=== PATIENT | male | born 1975 | race Two or more races ===

== ENCOUNTER 2020-02-09 10:42 | Emergency (ER) | payer OTHER ==
[2020-02-09] MEDS ORDERED: TETRACAINE 0.5% HCL 0.6ML DROPPER.BOTTLE OD ONE (10:46)
[2020-02-09] MEDS ORDERED: FLUORESCEIN NA 1 EA STRIP OD ONE (10:47)
[2020-02-09 11:01] VITALS: BP 131/70; PULSE 66; TEMP 98.4; BMI 31.4
== END 2020-02-09 11:49 | disposition home or self-care (01) ==
LOC: JER 10:42
DX: T15.91XA Foreign body on external eye, part unspecified, right eye, initial encounter (principal)
CPT/HCPCS: 99283-25